=== PATIENT | female | born 1955 ===

== ENCOUNTER 2016-07-30 13:02 | Emergency (ER) | payer MEDICARE ==
[2016-07-30 13:09] VITALS: TEMP 97.4
[2016-07-30] MEDS ORDERED: Sodium Chloride 0.9% 1,000 ML IV STA (13:24)
[2016-07-30] MEDS ORDERED: Sodium Chloride 0.9% 1,000 ML ONE (13:36)
[2016-07-30 14:04] LABS: BASO # 0.1 K/uL (0.0-0.2); EOS # 0.3 K/uL (0.0-0.7); EOS % 3.2 % (0.0-4.0); HEMATOCRIT 35.3 % (34.0-47.0); LYMPH % 22.3 % (20.0-40.0); MEAN CELL VOLUME 85.8 fL (81.0-99.0); MEAN CORPUSCULAR HEMOGLOBIN 28.5 pg (27.0-31.0); MEAN CORPUSCULAR HGB CONC 33.2 g/dL (33.0-37.0); MEAN PLATELET VOLUME 8.4 fL (7.2-11.7); MONO # 0.5 K/uL (0.0-0.8); MONO % 5.9 % (0.0-10.0); RED CELL DISTRIBUTION WIDTH 13.5 % (11.5-14.5); WHITE BLOOD COUNT 8.8 K/uL (4.8-10.8)
[2016-07-30 14:13] LABS: CHLORIDE 100 mmol/L (98-107); POTASSIUM 3.8 mmol/L (3.6-5.2); SODIUM 140 mmol/L (132-148)
[2016-07-30 14:15] LABS: AST/SGOT 29 U/L (14-36); BILIRUBIN,TOTAL 0.1 mg/dL (0.2-1.3); CARBON DIOXIDE 25 mmol/L (22-30); GFR AFRICAN-AMERICAN > 60
[2016-07-30 14:16] LABS: ALB/GLOB RATIO 1.1 (1.0-2.1); ALKALINE PHOSPHATASE 90 U/L (38-126); ALT/SGPT 15 U/L (9-52); BLOOD UREA NITROGEN 23 mg/dL (7-17); CALCIUM 9.2 mg/dl (8.6-10.4); GLUCOSE,RANDOM 90 mg/dL (65-105)
--- NOTE | 2016-07-30 14:46 | RAD ---
HISTORY: near syncope COMPARISON: None available. TECHNIQUE: Chest, one view. FINDINGS: Examination limited by habitus, hypo inflation, and patient obliquity. LUNGS: Mild bibasilar atelectasis. No focal consolidation. Please note that chest x-ray has limited sensitivity for the detection of pulmonary masses. PLEURA: No significant pleural effusion identified. No definite pneumothorax . CARDIOVASCULAR: Heart size appears within normal limits. Prominence of the mediastinum likely exaggerated by tortuous aorta and patient obliquity. OSSEOUS STRUCTURES: No acute osseous abnormality identified. VISUALIZED UPPER ABDOMEN: Unremarkable. OTHER FINDINGS: None. IMPRESSION: Bibasilar atelectasis. Prominence of the mediastinum likely exaggerated by tortuous aorta and patient obliquity. Correlate clinically.
--- NOTE | 2016-07-30 15:39 | C.PDOC ---
History Of Present Illness 60 yr old female with PMHx of depression, presents to the ER with complaints of generalized weakness, nausea and lightheadedness for the past 2 days. Patient states she went to her PMD/OBGYN for a scheduled routine appointment and in the office she was told she has a low blood pressure, appeared dehydrated and to come to the ER. Patient denies LOC, fever, chills, chest pain, SOB, nausea, vomiting, rectal bleeding, melena, weakness or numbness. Time Seen by Provider: 07/30/16 13:06 Chief Complaint (Nursing): GI Problem History Per: Patient History/Exam Limitations: no limitations Onset/Duration Of Symptoms: Days (2) Past Medical History Reviewed: Historical Data, Nursing Documentation, Vital Signs Vital Signs: Last Vital Signs Temp 97.4 F L 07/30/16 13:07 Pulse 70 07/30/16 13:07 Resp 20 07/30/16 13:07 BP 102/64 07/30/16 13:07 Pulse Ox 99 07/30/16 16:16 - Medical History PMH: Depression Family History: States: No Known Family Hx - Social History Hx Alcohol Use: No Hx Substance Use: No - Immunization History Hx Influenza Vaccination: No Review Of Systems Except As Marked, All Systems Reviewed And Found Negative. Constitutional: Positive for: Weakness (Generalized ), Other (Near syncopal). Negative for: Fever, Chills Cardiovascular: Negative for: Chest Pain Respiratory: Negative for: Shortness of Breath Gastrointestinal: Positive for: Other (No rectal bleeding. ). Negative for: Nausea, Vomiting, Melena Neurological: Negative for: Weakness, Numbness Physical Exam - Physical Exam Additional Physical Exam Comments: Constitutional: No acute distress. Weak. Pale. Head: Normocephalic. Atraumatic. Eyes: PERRL. ENT: Dry. Neck: Supple. Cardiovascular: Regular rate. Radial pulses 2+ bilaterally. Chest: No tenderness. Respiratory: Clear to auscultation bilaterally. GI: Soft. Nontender. Nondistended. Back: No CVA tenderness. Musculoskeletal: No tenderness or swelling of extremities. Skin: No rash. Neurologic: Alert, no focal deficit. ED Course And Treatment - Laboratory Results Result Diagrams: 07/30/16 13:57 07/30/16 13:57 O2 Sat by Pulse Oximetry: 99 Medical Decision Making Medical Decision Making: PLAN: * CXR * EKG * Troponin * CBC * Urinalysis * ZOfran IVP * Sodium Chloride IV EKG: Normal Sinus Rhythm. [address]/T wave changes. CXR: HISTORY: near syncope COMPARISON: None available. TECHNIQUE: Chest, one view. FINDINGS: Examination limited by habitus, hypo inflation, and patient obliquity. LUNGS: Mild bibasilar atelectasis. No focal consolidation. Please note that chest x-ray has limited sensitivity for the detection of pulmonary masses. PLEURA: No significant pleural effusion identified. No definite pneumothorax . CARDIOVASCULAR: Heart size appears within normal limits. Prominence of the mediastinum likely exaggerated by tortuous aorta and patient obliquity. OSSEOUS STRUCTURES: No acute osseous abnormality identified. VISUALIZED UPPER ABDOMEN: Unremarkable. OTHER FINDINGS: None. IMPRESSION: Bibasilar atelectasis. Prominence of the mediastinum likely exaggerated by tortuous aorta and patient obliquity. Correlate clinically. Patient feels much better after IV hydration. Labs unremarkable. Discussed case with PMD Gulshan who agrees with discharge and f/u in office. Disposition Counseled Patient/Family Regarding: Studies Performed, Diagnosis, Need For Followup - Disposition Referrals: Mona Gaffney [Staff Provider] - Disposition: HOME/ ROUTINE Disposition Time: 16:00 Condition: STABLE Instructions: Dehydration (ED) - Clinical Impression Clinical Impression: Dehydration - Scribe Statement The provider has reviewed the documentation as recorded by the Rosanneibe Meme Power Provider Attestation: All medical record entries made by the Rosanneibhang were at my direction and personally dictated by me. I have reviewed the chart and agree that the record accurately reflects my personal performance of the history, physical exam, medical decision making, and the department course for this patient. I have also personally directed, reviewed, and agree with the discharge instructions and disposition.
[2016-07-30 16:04] LABS: RBC URINE 5 /hpf (0-3); URINE BILIRUBIN NEGATIVE (NEGATIVE); URINE BLOOD 3+ (NEGATIVE); URINE COLOR Straw (YELLOW); URINE GLUCOSE (UA) NORMAL (Normal); URINE KETONE NEGATIVE (NEGATIVE); URINE LEUKOCYTE ESTERASE NEG Leu/uL (Negative); URINE PROTEIN NEGATIVE (NEGATIVE); URINE UROBILINOGEN NORMAL mg/dL (0.2-1.0); WBC URINE < 1 /hpf (0-5)
[2016-07-30 16:38] VITALS: BP 103/52; PULSE 72; RESP 18; O2SAT 100
--- NOTE | 2016-08-03 12:29 | CARD ---
APPROVED REPORT EKG Measurement Heart [id number] CT 154P1 [id number] <Conclusion> Normal sinus rhythm Normal ECG
== END 2016-07-30 16:38 | disposition home or self-care (01) ==
LOC: C.ER 13:02
DX: E86.0 Dehydration (principal)
CPT/HCPCS: 71010; 80053; 81001; 82550; 82553; 83690; 84484; 85025; 86850; 86900; 96361; 96374; 99284; J2405; J7040

== ENCOUNTER 2016-08-04 10:03 | Emergency (ER) | payer MEDICARE ==
[2016-08-04] MEDS ORDERED: Sodium Chloride 0.9% 1,000 ML IV ONE (10:39)
--- NOTE | 2016-08-04 10:51 | C.PDOC ---
History Of Present Illness 60 y/o female presents to the ED with complains of feeling dizzy (room spinning ) and nausea APPLICATION SPEC. Pt was at [employer] office when symptoms onset who referred pt to ED for evaluation. Pt with history of anemia, no other pmhx. Time Seen by Provider: 08/04/16 10:20 Chief Complaint (Nursing): Dizziness/Lightheaded History Per: Patient History/Exam Limitations: no limitations Onset/Duration Of Symptoms: Hrs Current Symptoms Are (Timing): Still Present Seizure Or Post-ictal Symptoms: None Fall Associated With With Symptoms: No Severity: Mild Recent travel outside of the [place]: No Past Medical History Reviewed: Historical Data, Nursing Documentation, Vital Signs Vital Signs: Last Vital Signs Temp 97.7 F 08/04/16 10:19 Pulse 75 08/04/16 10:19 Resp 15 08/04/16 10:19 BP 117/60 08/04/16 10:19 Pulse Ox 96 08/04/16 10:53 - Medical History PMH: Anemia, Depression Family History: States: Unknown Family Hx - Social History Hx Alcohol Use: No Hx Substance Use: No - Immunization History Hx Tetanus Toxoid Vaccination: No Hx Influenza Vaccination: No Hx Pneumococcal Vaccination: No Review Of Systems Except As Marked, All Systems Reviewed And Found Negative. Constitutional: Negative for: Fever Eyes: Negative for: Vision Change Gastrointestinal: Positive for: Nausea. Negative for: Vomiting Neurological: Positive for: Dizziness. Negative for: Weakness, Numbness Physical Exam - Physical Exam Appears: Non-toxic, No Acute Distress Skin: Warm, Dry, No Rash Head: Atraumatic, Normacephalic Eye(s): bilateral: PERRL, EOMI Ear(s): Bilateral: Normal Nose: Normal Neck: Normal ROM, Supple Chest: Symmetrical Cardiovascular: Rhythm Regular Respiratory: Normal Breath Sounds, No Rales, No Rhonchi, No Wheezing Gastrointestinal/Abdominal: Soft Extremity: Normal ROM Extremity: Bilateral: Atraumatic Neurological/Psych: Oriented x3, Normal Speech, Normal Motor, Normal Sensation ED Course And Treatment - Laboratory Results Result Diagrams: 08/04/16 10:59 08/04/16 10:59 Lab Interpretation: Normal ECG: Interpreted By Me ECG Rhythm: Sinus Rhythm ECG Interpretation: Normal Rate From EC O2 Sat by Pulse Oximetry: 96 (on room air) Pulse Ox Interpretation: Normal Progress Note: Plan: EKG, labs, meclizine, reglan. On re-evaluation abdomen soft non-tender, neuro intact, ambulating with steady gait Reassessment Condition: Improved Disposition - Disposition Disposition Time: 12:45 Condition: STABLE Additional Instructions: Follow up with PMD for further evaluation Instructions: Vertigo (ED), Dizziness (ED) - POA Present On Arrival: None - Clinical Impression Clinical Impression: Dizziness - PA / [employer] O[employer] / Resident Statement MD/DO has reviewed & agrees with the documentation as recorded. - Scribe Statement The provider has reviewed the documentation as recorded by the Rosanneibhang Moyer All medical record entries made by the Itzel were at my direction and personally dictated by me. I have reviewed the chart and agree that the record accurately reflects my personal performance of the history, physical exam, medical decision making, and the department course for this patient. I have also personally directed, reviewed, and agree with the discharge instructions and disposition.
[2016-08-04] MEDS ORDERED: Sodium Chloride 0.9% 1,000 ML ONE (10:58)
[2016-08-04 11:07] LABS: BASO # 0.1 K/uL (0.0-0.2); BASO % 0.8 % (0.0-2.0); EOS # 0.2 K/uL (0.0-0.7); HEMATOCRIT 33.9 % (34.0-47.0); LYMPH # 2.2 K/uL (1.0-4.3); LYMPH % 25.9 % (20.0-40.0); MEAN CELL VOLUME 85.9 fL (81.0-99.0); MEAN CORPUSCULAR HEMOGLOBIN 28.5 pg (27.0-31.0); MEAN CORPUSCULAR HGB CONC 33.2 g/dL (33.0-37.0); MEAN PLATELET VOLUME 8.2 fL (7.2-11.7); MONO # 0.6 K/uL (0.0-0.8); MONO % 7.6 % (0.0-10.0); NRBC % 0.1 % (0.0-2.0); WHITE BLOOD COUNT 8.3 K/uL (4.8-10.8)
[2016-08-04 11:16] LABS: CHLORIDE 100 mmol/L (98-107); POTASSIUM 4.7 mmol/L (3.6-5.2); SODIUM 140 mmol/L (132-148)
[2016-08-04 11:18] LABS: ALKALINE PHOSPHATASE 99 U/L (38-126); AST/SGOT 41 U/L (14-36); BILIRUBIN,TOTAL 0.2 mg/dL (0.2-1.3); BLOOD UREA NITROGEN 24 mg/dL (7-17); CARBON DIOXIDE 28 mmol/L (22-30); GFR AFRICAN-AMERICAN > 60; TOTAL PROTEIN 7.8 g/dL (6.3-8.3)
[2016-08-04 11:19] LABS: ALT/SGPT 28 U/L (9-52); CALCIUM 9.3 mg/dl (8.6-10.4); GLUCOSE,RANDOM 93 mg/dL (65-105)
[2016-08-04 12:34] LABS: RBC URINE 20 /hpf (0-3); URINE BILIRUBIN NEGATIVE (NEGATIVE); URINE BLOOD 2+ (NEGATIVE); URINE COLOR Straw (YELLOW); URINE GLUCOSE (UA) NORMAL (Normal); URINE KETONE NEGATIVE (NEGATIVE); URINE LEUKOCYTE ESTERASE NEG Leu/uL (Negative); URINE PROTEIN NEGATIVE (NEGATIVE); URINE UROBILINOGEN NORMAL mg/dL (0.2-1.0); WBC URINE < 1 /hpf (0-5)
[2016-08-04 13:12] VITALS: BP 100/65; PULSE 76; RESP 18; TEMP 97.5; O2SAT 98
--- NOTE | 2016-08-05 14:46 | CARD ---
APPROVED REPORT EKG Measurement Heart [id number] [id number] <Conclusion> Normal sinus rhythm Normal ECG
== END 2016-08-04 13:15 | disposition home or self-care (01) ==
LOC: C.ER 10:03
DX: R42 Dizziness and giddiness (principal)
CPT/HCPCS: 80053; 81001; 82948; 83690; 85025; 93005; 96361; 96365; 99285; J2765; J7040

== ENCOUNTER 2018-09-14 10:24 | Outpatient (CLI) | payer MEDICARE | END 2018-09-14 10:25 | disposition home or self-care (01) | LOC: C.MAMMO 10:24 ==